=== PATIENT | male | born 1995 | race Caucasian/White ===

== ENCOUNTER 2018-06-04 09:48 | Emergency (ER) | payer SELFPAY ==
[2018-06-04 09:49] VITALS: BP 129/80; PULSE 95; RESP 36; TEMP 37.6; O2SAT 99; BMI 31.7
--- NOTE | 2018-06-04 10:13 | EKG12_ITS ---
Test Reason : SOB Blood Pressure : / mmHG Vent. Rate : 094 BPM Atrial Rate : 094 BPM P-R Int : 144 ms QRS Dur : 072 ms QT Int : 312 ms P-R-T Axes : 038 064 046 degrees QTc Int : 390 ms Normal sinus rhythm Normal ECG Confirmed by THEO HERNANDEZ MD ([id number]), editorial clerk GERMAN STANLEY ([id number] on 06/12/2018 1:12:11 PM Referred By: HANNAH Confirmed By:THEO HERNANDEZ MD
--- NOTE | 2018-06-04 10:14 | ED.VISSUMM ---
- ER Visit Summary Date of Service: 06/04/18 Chief Complaint: Shortness of breath History of Present Illness: The patient is a 22 M spinal stenosis of his back. Patient states last 2 weeks he found short of breath. Cough of greenish sputum. No hemoptysis. No chest pain. No history of any prior cardiac disease. He does have a history of asthma. He says had a low-grade fever of 100. He denies any melena. He denies any leg swelling. Physical Examination: Well-appearing young male. Vital signs are stable septic or toxic. Temperature is 99.6. Pulse ox 99% on room. No hypoxia. Neck nontender no lymphadenopathy. Lungs clear to auscultation bilaterally. No rales, rhonchi or heart regular rate and rhythm no murmur. Abdomen soft and nontender. Normal bowel sounds. Patient is moving all 4 extremities. They are neurovascularly intact. Calves are nontender without edema or cords. Neurologically he is awake and alert with no focal motor deficits. Test Results: Chest x-ray 2 views read both by myself the radiologist is no acute abnormality. EKG sinus rhythm rate of 94 with no acute signs of dysrhythmia nor [place] or ischemia. CBC normal white count 8. Normal hemoglobin 14. Electrolytes unremarkable potassium 3.3. Normal creatinine and gap. Emergency Department Course and Treatment: Just a mild viral URI. In stating he has been short of breath for 2 weeks and will undergo lab workup along with an EKG and chest x-ray. Repeat exam at 1147 patient is doing well. No distress. Treatment Plan: Discharged home. Inhaler as needed. He will be assigned a physician. Disposition: Discharge Impression: Dyspnea secondary to viral URI History of asthma This note was generated with [employer] software. It may contain incorrect words, spelling, and punctuation that were not noted in review of the chart prior to signing ED Disposition - Plan for ED Patient: Chief Complaint: Shortness of Breath
--- NOTE | 2018-06-04 10:18 | ED.DCSUM_ITS ---
- ER Visit Summary Date of Service: 06/04/18 Chief Complaint: Shortness of breath History of Present Illness: The patient is a 22 M spinal stenosis of his back. Patient states last 2 weeks he found short of breath. Cough of greenish sputum. No hemoptysis. No chest pain. No history of any prior cardiac disease. He does have a history of asthma. He says had a low-grade fever of 100. He denies any melena. He denies any leg swelling. Physical Examination: Well-appearing young male. Vital signs are stable septic or toxic. Temperature is 99.6. Pulse ox 99% on room. No hypoxia. Neck nontender no lymphadenopathy. Lungs clear to auscultation bilaterally. No rales, rhonchi or heart regular rate and rhythm no murmur. Abdomen soft and nontender. Normal bowel sounds. Patient is moving all 4 extremities. They are neurovascularly intact. Calves are nontender without edema or cords. Neurologically he is awake and alert with no focal motor deficits. Test Results: Chest x-ray 2 views read both by myself the radiologist is no acute abnormality. EKG sinus rhythm rate of 94 with no acute signs of dysrhythmia nor [place] or ischemia. CBC normal white count 8. Normal hemoglobin 14. Electrolytes unremarkable potassium 3.3. Normal creatinine and gap. Emergency Department Course and Treatment: Just a mild viral URI. In stating he has been short of breath for 2 weeks and will undergo lab workup along with an EKG and chest x-ray. Repeat exam at 1147 patient is doing well. No distress. Treatment Plan: Discharged home. Inhaler as needed. He will be assigned a physician. Disposition: Discharge Impression: Dyspnea secondary to viral URI History of asthma This note was generated with [employer] software. It may contain incorrect words, spelling, and punctuation that were not noted in review of the chart prior to signing ED Disposition - Plan for ED Patient: Chief Complaint: Shortness of Breath
[2018-06-04 10:19] VITALS: PULSE 101; RESP 22
[2018-06-04] MEDS: Ipratropium/Albuterol Sulfate 3 ML AMPUL.NEB INHALATION (10:19)
--- NOTE | 2018-06-04 10:21 | NURSING ---
NO OLD EKGS
[2018-06-04 10:58] VITALS: TEMP 37.9
[2018-06-04 10:58] LABS: Absolute Lymphocyte Count 1.39 X10^3/ul (0.83-4.51); Absolute Neutrophil Count 6.1 X10^3/uL (2.0-7.7); Basophil# 0.02 X10^3/uL; Basophil% 0.2 % (0-1); Eosinophil# 0.02 X10^3/uL; Eosinophils% 0.2 % (0-5); Hematocrit 41.5 % (40-54); Hemoglobin 14.2 g/dl (13.0-16.5); Lymphocyte # 1.39 X10^3/ul (4.0); Lymphocyte % 16.7 % (19-41); Mean Corp Hgb Conc 34.2 g/gl (32-36); Mean Corpuscular Hgb 29.5 pg (27.0-32.0); Mean Corpuscular Volume 86.1 fL (80-94); Monocyte# 0.81 X10^3/uL; Monocyte% 9.7 % (0-10); Neutrophil # 6.09 X10^3/uL (2.7-7.7); Neutrophil % 73.1 % (47-70); Platelet Count 187 K/mm3 (150-450); RBC Distribution Width CV 12.3 % (11.6-14.6); RBC Distribution Width SD 38.2 fl (35.1-43.9); Red Blood Count 4.82 M/mm3 (4.6-6.2); White Blood Count 8.3 K/mm3 (4.4-11.0)
[2018-06-04 10:59] LABS: POSITIVE COUNT NO; POSITIVE DIFFERENTIAL NO; POSITIVE MORPHOLOGY NO
--- NOTE | 2018-06-04 11:00 | RAD_ITS ---
STUDY: X-RAY CHEST REASON FOR EXAM: Male, 22 years old. Chest pain. Shortness of breath. TECHNIQUE: PA and lateral views of the chest. COMPARISON: None. FINDINGS: The lungs are clear and expanded. Scattered calcified granulomas. There is no demonstrated pleural abnormality. Normal size heart. Normal mediastinum and wade. Normal visualized pulmonary arteries. Normal visualized aortic arch and descending thoracic aorta. Normal visualized thoracic spine. Increased kyphosis. Normal visualized ribs, clavicles, and shoulders. There is no demonstrated abnormality of the visualized soft tissue structures of the upper abdomen. RAD/Chest PA and Lateral IMPRESSION: Normal x-ray examination of the chest. Electronically Signed: Bao Nelson MD at 11:21 EDT Tel [phone], Service support ,
[2018-06-04 11:12] LABS: Anion Gap 8 (5-15); BUN 11 mg/dL (7-18); BUN/Creat Ratio 10.9 RATIO (10-20); Calcium,Total 8.8 mg/dL (8.5-10.1); Chloride 102 mmol/L (98-107); Creatinine, Serum 1.01 mg/dL (0.70-1.30); EST Glomerular Filtration Rate 96 mL/min (>60); Est Glom Filt Rate - Afr Amer 116 mL/min (>60); Estimated Creatinine Clearance 123.78 ml/min; Glucose 85 mg/dL (74-106); Potassium 3.3 mmol/L (3.5-5.1); Sodium Level 138 mmol/L (136-145)
[2018-06-04] MEDS: Acetaminophen 500 MG Tablet 1000 MG PO (11:19)
[2018-06-04 11:20] VITALS: O2SAT 99
--- NOTE | 2018-06-04 11:49 | ED.DEP ---
ED Disposition - Plan for ED Patient: Disposition: Home or Assisted Living Chief Complaint: Shortness of Breath Instructions: ED Bronchitis Asthmatic Prescriptions: Albuterol Sulfate [Proventil Hfa] 6.7 gm IH Q4H PRN PRN #1 [id number] PRN Reason: Asthma Referrals: Mauro Nichols MD [STAFF PHYSICIAN] - 3-5 Days if not improving Additional Instructions: Use your inhalers as needed. All your labs, EKG and x-ray today were all normal.
[2018-06-04 12:11] VITALS: BP 130/63; PULSE 100; RESP 25; O2SAT 95
[2018-06-04 12:22] VITALS: TEMP 37.6
--- NOTE | 2018-06-05 14:40 | CM.ED ---
ED CALLBACK: Follow-up call placed to patient with no answer. Voicemail left with return contact information.
== END 2018-06-04 12:23 | disposition home or self-care (01) ==
PROVIDERS: Emergency Provider Emergency Medicine
DX: J06.9 Acute upper respiratory infection, unspecified (principal); J45.909 Unspecified asthma, uncomplicated; Z72.0 Tobacco use
CPT/HCPCS: 71046; 80048; 85025; 93005; 94640; 99284; A4216